=== PATIENT | female | born 1985 | race Caucasian/White ===

== ENCOUNTER 2016-10-12 18:07 | Observation (INO) | payer OTHER ==
--- NOTE | 2016-10-12 18:57 | SOAPPROG ---
SOAP Progress Note Assessment/Plan: Assessment: 31 yo G1 at 31w6d, slipped on fell on left leg today. No abdominal trauma. No VB. Active baby. No contractions. NST reactive. No signs of injury. Rh pos. No evidence of distress or labor. Plan: Discharge home Precautions given 10/12/16 18:54 Subjective: Pt was going around to passenger side of car today and slipped on ice. Fell onto her left hip/leg. Did NOT hit abdomen. No bruising or pain, feels fine now. Was overall a minor fall she says, just worried about baby. + FM. No ctx, abd pain, LOF, VB. Objective: 108/73, pulse = 94 Gen: NAD Resp: unlabored Abd: soft, nontender, no bruising, gravid Ext: nontender, warm, no bruising or evidence of injury in area of impact FHR baseline 135, mod sunny, + accel, no decels [place]: none ICD10 Worksheet Patient Problems: Problems Problem Status Diagnosed 32 weeks gestation of Acute Accident due to mechanical fall without injury Acute - ICD10 Problem Qualifiers (1) Accident due to mechanical fall without injury Qualifiers: Encounter type: initial encounter Qualified Description: Accident due to mechanical fall without injury, initial encounter Qualifier Code(s): ( W19.XXXA) Unspecified fall, initial encounter (2) 32 weeks gestation of
== END 2016-10-12 19:19 | disposition home or self-care (01) ==
LOC: FLD 18:07
PROVIDERS: ADMIT Obstetrics & Gynecology; ATTEND Obstetrics & Gynecology
DX: O9A.213 Injury, poisoning and certain other consequences of external causes complicating pregnancy, third trimester (principal); S89.92XA Unspecified injury of left lower leg, initial encounter; W00.0XXA Fall on same level due to ice and snow, initial encounter; Z3A.31 31 weeks gestation of pregnancy
CPT/HCPCS: 59025; G0378

== ENCOUNTER 2016-12-06 21:16 | Observation (INO) | payer OTHER ==
[2016-12-06 22:22] LABS: % IMMATURE GRANULYOCYTES 0.8 % (0.0-1.1); ABSOLUTE IMMATURE GRANULOCYTES 0.11 10^3/uL (0.00-0.10); ADD DIFF? NO; ADD MORPH? NO; ADD SCAN? NO; ATYPICAL LYMPHOCYTE FLAG 0 (0-99); FRAGMENT RBC FLAG 0 (0-99); HEMATOCRIT 37.4 % (38.0-47.0); HEMOGLOBIN 13.3 g/dL (12.6-16.3); LEFT SHIFT FLG 0 (0-99); LIPEMIA HEMOLYSIS FLAG 90 (0-99); MEAN CELL HEMOGLOBIN 31.7 pg (27.9-34.1); MEAN CELL HEMOGLOBIN CONCENTR. 35.6 g/dL (32.4-36.7); MEAN PLATELET VOLUME 9.5 fL (8.7-11.7); PLATELET CLUMPS FLAG 0 (0-99); PLATELET COUNT 213 10^3/uL (150-400); RED CELL DISTRIBUTION WIDTH 13.1 % (11.5-15.2)
[2016-12-06 22:34] LABS: ALANINE AMINOTRANSFERASE 23 IU/L (9-52); ASPARTATE AMINOTRANSFERASE 24 IU/L (14-46); BILIRUBIN,TOTAL 0.4 mg/dL (0.1-1.4); BILIRUBIN-CONJUGATED 0.3 mg/dL (0.0-0.5); BILIRUBIN-UNCONJUGATED 0.1 mg/dL (0.0-1.1); CREATININE 0.5 mg/dL (0.6-1.0); GLOMERULAR FILTRATION RATE > 60; LACTATE DEHYDROGENASE 397 IU/L (313-618)
--- NOTE | 2016-12-06 23:38 | GHP ---
[f rep st] OB TRIAGE NOTE DATE OF ADMISSION: 12/06/2016 CHIEF COMPLAINT: Vaginal bleeding and leakage of fluid. HISTORY OF PRESENT ILLNESS: The patient is a 31-year-old, 1, para 0, female at 39 weeks and 5 days estimated gestational age with a due date of December 08, 2016, who presents to Labor and Delivery with report of a small amount of bright red spotting earlier this evening. She also reports having more watery discharge throughout the day. She denies any gushes of fluid and denies any heavy vaginal bleeding. She reports feeling good movement, and denies any contractions or abdominal pain. The patient's has been uncomplicated, and she is GBS negative. PAST MEDICAL HISTORY: None. PAST SURGICAL HISTORY: None. ALLERGIES: No known drug allergies. OBJECTIVE: VITAL SIGNS: Blood pressure 140/87 with all repeat blood pressures normal ranging from 119-124/75-76. Heart rate 100, respiratory rate 18, temp 36.8 degrees Celsius. heart rate baseline 130s to 140s with accelerations and moderate variability present and no decelerations. Tocometer contractions not visualized. GENERAL: No distress. Well-developed, well-nourished female. CARDIOVASCULAR: Regular rate and rhythm. CHEST: Clear to auscultation bilaterally. ABDOMEN: Gravid and nontender. Sterile speculum: Watery-appearing vaginal discharge seen, negative, no pooling , and negative Valsalva with no fluids seen with coughing. Negative Nitrazine with normal acidic pH confirmed. No ferning under the microscope seen. Cervical exam was 1 cm, 50% effaced, and -3 station. No active bleeding visualized, and no blood in the vault other than a small amount of blood-tinged discharge. Limited bedside ultrasound was performed showing a fetus in the vertex presentation with a normal LETICIA of 21.9 cm and a fundal posterior placenta that appeared normal with no signs of abruption. There is good movement and cardiac activity seen during the ultrasound. LABS: A PIH panel was drawn showing a normal CBC with hematocrit of 37 and platelets of 213. Her chemistry panel is currently pending. ASSESSMENT: Patient is a 31-year-old, 1, para 0, female at 39 weeks and 5 days estimated gestational age with vaginal discharge and a small amount of spotting -- no signs of ruptured membranes at this time, no signs of labor, and one single elevated blood pressure on admission, which was normal with repeat measurements. PLAN: 1. status is currently reassuring with a reactive nonstress test. 2. No signs of labor with cervix being only 1 cm dilated. 3. No signs of ruptured membranes with negative ferning, pooling, Valsalva, and normal LETICIA. 4. Spotting. No signs of abruption with normal status on the heart rate monitor and normal LETICIA. All this is reassuring. I suspect she just has a small amount of more watery cervical discharge and a very tiny bit of spotting which is not concerning at this time. 5. Single elevated blood pressure. She had one single elevated systolic blood pressure at 140. All subsequent blood pressures were normal, and she is asymptomatic with no preeclampsia symptoms. PIH panel ordered. 6. Dispo: If her PIH panel is normal, we will send her home with close follow- up with an appointment with me tomorrow within 24 hours at 11:45 am. If discharged home, I advised the patient to call back if she had any signs of labor, any worsening of her vaginal bleeding, or any leakage of fluid with any gushes to suggest leakage of amniotic fluid, any preeclampsia symptoms, or decrease in movement. /[id number]/MODL MTDD
== END 2016-12-06 23:00 | disposition home or self-care (01) ==
LOC: FLD 21:16
PROVIDERS: ADMIT Obstetrics & Gynecology; ATTEND Obstetrics & Gynecology
DX: O26.853 Spotting complicating pregnancy, third trimester (principal); Z3A.39 39 weeks gestation of pregnancy
CPT/HCPCS: 59025; G0378

== ENCOUNTER 2016-12-07 13:50 | Inpatient (IN) | payer OTHER ==
[2016-12-07] MEDS ORDERED: OXYTOCIN/RINGERS LACTATE 1,000 ML IV PRN (16:59)
[2016-12-07] MEDS ORDERED: TERBUTALINE SULFATE 1 MG/ML VIAL IV PRN (16:59)
[2016-12-07] MEDS ORDERED: OLIVE OIL 118 ML BTL MISC PRN (16:59)
[2016-12-07] MEDS ORDERED: LIDOCAINE 1% 30 ML SDV SC PRN (16:59)
[2016-12-07] MEDS ORDERED: EPSOM SALT 454 GM TP PRN (16:59)
[2016-12-07] MEDS ORDERED: LIDOCAINE 1% 30 ML SDV ONE (17:24)
[2016-12-07] MEDS ORDERED: AMMONIA AROMATIC 1 EACH AMP IH ONE (17:24)
[2016-12-07] MEDS ORDERED: OLIVE OIL 118 ML BTL ONE (17:24)
[2016-12-07] MEDS ORDERED: TERBUTALINE SULFATE 1 MG/ML VIAL ONE (17:25)
[2016-12-07] MEDS ORDERED: MISOPROSTOL 200 MCG TAB ONE (17:25)
--- NOTE | 2016-12-07 18:04 | OBPROG ---
OBG Progress Note Assessment/Plan: Assessment: 31 y/o at 39+6 weeks EGA admitted with PROM at term - Plan: 1) status reassuring 2) PROM at term - labor progressing, cervical change fro 1cm to now 3-/-2. No need for augmentation at this time. Will consider pitocin if needed. 3) Pain - no need for intervention at this time 4) GBS negative 12/07/16 18:01 Subjective: Pt feeling more contractions, continues to have clear fluid leakage. - SVE Dilation (cm): 3 Effacement (%): 90 Station: -2 Current Contraction Pattern: Regular FHR (bpm): 130 FHR Pattern Variability: Moderate FHR Category: 1 Membranes: SROM Amniotic Fluid Color: Clear ICD10 Worksheet Patient Problems: Problems Problem Status Onset Hypertension affecting in third trimester Acute with third trimester bleeding Acute Vaginal discharge during in third trimester Acute 32 weeks gestation of Acute Accident due to mechanical fall without injury Acute Full-term PROM with onset of labor within 24 hours of rupture Acute - ICD10 Problem Qualifiers (1) Full-term PROM with onset of labor within 24 hours of rupture
[2016-12-07 18:08] LABS: % IMMATURE GRANULYOCYTES 0.8 % (0.0-1.1); ABSOLUTE IMMATURE GRANULOCYTES 0.15 10^3/uL (0.00-0.10); ADD DIFF? NO; ADD MORPH? NO; ADD SCAN? NO; ATYPICAL LYMPHOCYTE FLAG 0 (0-99); FRAGMENT RBC FLAG 0 (0-99); HEMATOCRIT 40.7 % (38.0-47.0); HEMOGLOBIN 14.4 g/dL (12.6-16.3); LEFT SHIFT FLG 0 (0-99); LIPEMIA HEMOLYSIS FLAG 90 (0-99); MEAN CELL HEMOGLOBIN 30.9 pg (27.9-34.1); MEAN CELL HEMOGLOBIN CONCENTR. 35.4 g/dL (32.4-36.7); MEAN CELL VOLUME 87.3 fL (81.5-99.8); MEAN PLATELET VOLUME 9.5 fL (8.7-11.7); PLATELET CLUMPS FLAG 10 (0-99); PLATELET COUNT 255 10^3/uL (150-400); RED BLOOD CELL COUNT 4.66 10^6/uL (4.18-5.33); RED CELL DISTRIBUTION WIDTH 13.1 % (11.5-15.2)
--- NOTE | 2016-12-07 20:49 | OBPROG ---
OBG Progress Note Assessment/Plan: Assessment: Active spontaneous labor at 39w6d GBS neg status reassuring Plan: Expectant management Nitrous for pain 12/07/16 20:48 Subjective: A lot of pressure Objective: 12/07/16 17:30 Patient ABO/Rh O POSITIVE 12/07/16 17:30 Forebag palpated, AROM with clear fluid - SVE Dilation (cm): 7 Effacement (%): 100 Station: -2 Current Contraction Pattern: Regular FHR Pattern Variability: Moderate FHR Category: 1 Membranes: SROM Amniotic Fluid Color: Clear ICD10 Worksheet Patient Problems: Problems Problem Status Onset Full-term PROM with onset of labor within 24 hours of rupture Acute 32 weeks gestation of Acute Accident due to mechanical fall without injury Acute Hypertension affecting in third trimester Acute with third trimester bleeding Acute Vaginal discharge during in third trimester Acute
[2016-12-07] MEDS ORDERED: fentaNYL 100 MCG/2 ML INJ IVP ONE (21:12)
[2016-12-07] MEDS: LR 1,000 ML IV PRN ×2 (22:08→23:20)
--- NOTE | 2016-12-07 22:08 | OBPROG ---
OBG Progress Note Assessment/Plan: Assessment: Active spontaneous labor at 39w6d GBS neg status reassuring No change on last 2 exams (8 cm x 1.5 hours), but continuing to have strong regular contractions Plan: After discussion with pt and her family plan to proceed with epidural 12/07/16 20:48 12/07/16 22:07 Subjective: in a lot of pain. nitrous and fentanyl didn't help Objective: 12/07/16 17:30 Patient ABO/Rh O POSITIVE 12/07/16 17:30 FHR baseline 130-140, mod sunny, + accel, occ variables [place]: q2 min ICD10 Worksheet Patient Problems: Problems Problem Status Onset Full-term PROM with onset of labor within 24 hours of rupture Acute 32 weeks gestation of Acute Accident due to mechanical fall without injury Acute Hypertension affecting in third trimester Acute with third trimester bleeding Acute Vaginal discharge during in third trimester Acute
[2016-12-07] MEDS ORDERED: fentaNYL 2MCG/ML/BUP 0.1% RTU 100 ML BAG EP ONE (22:13)
[2016-12-07] MEDS ORDERED: BUPIVACAINE 0.25% 30 ML SDV ONE (22:13)
[2016-12-07] MEDS ORDERED: PHENYLEPHRINE HCL 100 MCG/ML SYR ONE (22:13)
[2016-12-07] MEDS ORDERED: fentaNYL 100 MCG/2 ML INJ ONE (22:15)
[2016-12-07] MEDS ORDERED: NALOXONE HCL 0.4 MG/ML INJ IVP PRN (23:39)
[2016-12-07] MEDS ORDERED: ONDANSETRON 4 MG/2 ML VIAL IVP PRN (23:39)
[2016-12-07] MEDS ORDERED: PHENYLEPHRINE HCL 100 MCG/ML SYR IVP PRN (23:39)
[2016-12-07] MEDS ORDERED: fentaNYL 2MCG/ML/BUP 0.1% RTU 100 ML EP SCH (23:45)
[2016-12-07] MEDS ORDERED: LR 500 ML IV SCH (23:45)
[2016-12-08] MEDS ORDERED: SIMETHICONE 80 MG TAB CHEW PO PRN (02:39)
[2016-12-08] MEDS ORDERED: HYDROCORTISONE 0.5% CREAM TP PRN (02:39)
--- NOTE | 2016-12-08 02:43 | OBPROC ---
- Labor and Delivery Onset of Contractions Date: 12/07/16 Onset of Contractions Type: Spontaneous Rupture of Membranes Date: 12/07/16 Rupture of Membranes Type: Spontaneous Amniotic Fluid Color: Clear Delivery Type: Spontaneous Placenta Delivery Date: 12/08/16 Episiotomy/Laceration: 2nd Degree Repair: 3-0 EBL: 250 Complications: None - Medications Labor Augmentation/Induction Meds Used: None Anesthesia: Epidural - [place] Info A Delivery Date: 12/08/16 Delivery Time: 01:48 Sex of : Female Score (1 Min): 8 Score (5 Min): 9 (Uncomplicated . Baby placed onto maternal abdomen, delayed cord clamping. IV pitocin started. Placenta did not immediately deliver despite massage and cord traction. Placenta was found to be at external os at 20 min after delivery, was grasped with ring forceps and teased out intact. Fundus firm. 2nd degree laceration repaired in usual fashion. Skin to skin, mom , baby Atley and dad Victor M bonding well.)
[2016-12-08] MEDS: IBUPROFEN 600 MG TAB PO PRN ×4 (03:13→22:33)
[2016-12-08 08:17] VITALS: RESP 16
[2016-12-08] MEDS: DOCUSATE SODIUM 100 MG CAP PO PRN ×2 (09:28→22:33)
--- NOTE | 2016-12-08 18:35 | OBPROG ---
OBG Progress Note Assessment/Plan: Assessment: 31 y/o PPD#0 s/p - doing well, no concerns Plan: Continue routine PP care O+/RI 12/08/16 18:34 Subjective: No concerns, ambulating, perineal pain controlled well w/ meds and ice packs. Lochia appropriate. Objective: 12/07/16 17:30 Patient ABO/Rh O POSITIVE 12/07/16 17:30 Temp Pulse Resp BP Pulse Ox 36.2 C 71 16 114/78 94 12/08/16 08:16 12/08/16 08:16 12/08/16 08:16 12/08/16 08:16 12/08/16 08:16 Uterine Position/Fundal Height: At Umbilicus Uterine Tone: Firm ICD10 Worksheet Patient Problems: Problems Problem Status Onset Full-term PROM with onset of labor within 24 hours of rupture Acute 32 weeks gestation of Acute Accident due to mechanical fall without injury Acute Hypertension affecting in third trimester Acute with third trimester bleeding Acute Vaginal discharge during in third trimester Acute - ICD10 Problem Qualifiers (1) Full-term PROM with onset of labor within 24 hours of rupture
[2016-12-09] MEDS: HYDROCODONE/APAP 5/325 TAB PO PRN ×5 (02:39→22:44)
[2016-12-09] MEDS: IBUPROFEN 600 MG TAB PO PRN ×4 (06:08→19:44)
--- NOTE | 2016-12-09 08:22 | OBPROG ---
OBG Progress Note Assessment/Plan: Assessment: 31 y/o PPD#1 s/p - doing well, no concerns Plan: Continue routine PP care O+/RI Discharge home tomorrow 12/09/16 08:21 Subjective: No complaints except fatigue, doing well. Objective: 12/07/16 17:30 Patient ABO/Rh O POSITIVE 12/07/16 17:30 Temp Pulse Resp BP Pulse Ox 36.7 C 83 16 111/73 95 12/08/16 23:00 12/08/16 23:00 12/08/16 23:00 12/08/16 23:00 12/08/16 23:00 Uterine Position/Fundal Height: Umbilicus -1 Uterine Tone: Firm ICD10 Worksheet Patient Problems: Problems Problem Status Onset Full-term PROM with onset of labor within 24 hours of rupture Acute 32 weeks gestation of Acute Accident due to mechanical fall without injury Acute Hypertension affecting in third trimester Acute with third trimester bleeding Acute Vaginal discharge during in third trimester Acute - ICD10 Problem Qualifiers (1) Full-term PROM with onset of labor within 24 hours of rupture
[2016-12-09] MEDS ORDERED: EPSOM SALT 454 GM TP ONE (09:22)
[2016-12-09] MEDS: DOCUSATE SODIUM 100 MG CAP PO PRN ×2 (09:30→19:44)
[2016-12-10] MEDS: IBUPROFEN 600 MG TAB PO PRN ×3 (01:22→13:13)
[2016-12-10] MEDS: HYDROCODONE/APAP 5/325 TAB PO PRN ×3 (05:36→13:14)
[2016-12-10] MEDS: DOCUSATE SODIUM 100 MG CAP PO PRN (07:22)
[2016-12-10 08:53] VITALS: BP 104/67; PULSE 80; TEMP 97.7; O2SAT 94
--- NOTE | 2016-12-10 12:29 | OBPROG ---
OBG Progress Note Assessment/Plan: Assessment: 31 y/o PPD#2 s/p - doing well, no concerns Plan: Discharge home O+/RI RX for motrin and norco given F/U in 6 weeks or sooner prn Pain/bleeding/fever precautions 12/10/16 12:29 Subjective: Pt doing well, no complaints. Ambulating, voiding, passing flatus, tolerating regular diet, lochia diminishing, and breast feeding progressing. Objective: 12/07/16 17:30 Patient ABO/Rh O POSITIVE 12/07/16 17:30 Temp Pulse Resp BP Pulse Ox 36.5 C 80 16 104/67 94 12/10/16 08:00 12/10/16 08:00 12/10/16 08:00 12/10/16 08:00 12/10/16 08:00 Uterine Position/Fundal Height: Umbilicus -1 Uterine Tone: Firm ICD10 Worksheet Patient Problems: Problems Problem Status Onset Full-term PROM with onset of labor within 24 hours of rupture Acute 32 weeks gestation of Acute Accident due to mechanical fall without injury Acute Hypertension affecting in third trimester Acute with third trimester bleeding Acute Vaginal discharge during in third trimester Acute - ICD10 Problem Qualifiers (1) Full-term PROM with onset of labor within 24 hours of rupture
== END 2016-12-10 14:15 | disposition home or self-care (01) | DRG 775 ==
LOC: FLD 13:50 → FOB 12-08 05:15
PROVIDERS: ADMIT Obstetrics & Gynecology; ATTEND Obstetrics & Gynecology
PROC: 0KQM0ZZ Repair Perineum Muscle, Open Approach (ICD-10-PCS; principal; 2016-12-08)
PROC: 10E0XZZ Delivery of Products of Conception, External Approach (ICD-10-PCS; principal; 2016-12-08)
DX: O70.1 Second degree perineal laceration during delivery (principal); Z3A.40 40 weeks gestation of pregnancy; Z37.0 Single live birth
CPT/HCPCS: J2370; J2590; J3010; J3105

== ENCOUNTER → 2018-05-27 | Outpatient (CLI) | payer OTHER | LOC: FIMAGING 14:31 | PROVIDERS: ATTEND Obstetrics & Gynecology | DX: Z34.91 Encounter for supervision of normal pregnancy, unspecified, first trimester (principal); Z3A.12 12 weeks gestation of pregnancy ==

== ENCOUNTER → 2018-07-18 | Outpatient (CLI) | payer OTHER | LOC: FIMAGING 07:28 | PROVIDERS: ATTEND Obstetrics & Gynecology | DX: Z34.92 Encounter for supervision of normal pregnancy, unspecified, second trimester (principal); Z3A.19 19 weeks gestation of pregnancy ==

== ENCOUNTER → 2018-10-22 | Outpatient (CLI) | payer OTHER | LOC: FIMAGING 14:41 | PROVIDERS: ATTEND Obstetrics & Gynecology | DX: Z34.83 Encounter for supervision of other normal pregnancy, third trimester (principal); Z3A.33 33 weeks gestation of pregnancy ==

== ENCOUNTER → 2018-11-18 | Outpatient (CLI) | payer OTHER | LOC: FIMAGING 14:11 | PROVIDERS: ATTEND Obstetrics & Gynecology | DX: O09.293 Supervision of pregnancy with other poor reproductive or obstetric history, third trimester (principal); Z3A.37 37 weeks gestation of pregnancy ==